=== PATIENT | male | born 1955 ===

== ENCOUNTER 2018-04-22 20:47 | Emergency (ER) | payer SELFPAY ==
[2018-04-22 20:55] VITALS: O2SAT 98
--- NOTE | 2018-04-22 21:32 | C.PDOC ---
History Of Present Illness 62 y/o male pt presents to the ER c/o epigastric abdominal pain with vomiting for x3 hours. Pt reports he ate oxtail soup with and felt nauseated and started vomiting 1-2 after eating. feels fine and does not have the same sx. states the soup had a lot of grease in it. Pt did took Pepto Bismol and chamomile tea without relief of his symptoms. Pt denies recent antibiotics, fever, chills, cough, diarrhea and chest pain. Time Seen by Provider: 04/22/18 21:04 Chief Complaint (Nursing): Abdominal Pain History Per: Patient History/Exam Limitations: no limitations Onset/Duration Of Symptoms: Hrs (3) Current Symptoms Are (Timing): Still Present Location Of Pain/Discomfort: Epigastric, Suprapubic Past Medical History Reviewed: Historical Data, Nursing Documentation, Vital Signs Vital Signs: Last Vital Signs Temp 98.1 F 04/22/18 20:53 Pulse 60 04/22/18 20:53 Resp 16 04/22/18 20:53 BP 116/71 04/22/18 20:53 Pulse Ox 98 04/22/18 20:53 Family History: States: Unknown Family Hx - Social History Hx Alcohol Use: No Hx Substance Use: No - Immunization History Hx Tetanus Toxoid Vaccination: No Hx Influenza Vaccination: No Hx Pneumococcal Vaccination: No Review Of Systems Except As Marked, All Systems Reviewed And Found Negative. Cardiovascular: Negative for: Chest Pain Gastrointestinal: Positive for: Nausea, Vomiting, Abdominal Pain (epigastric and suprapubic ). Negative for: Diarrhea Physical Exam - Physical Exam Appears: Well, Non-toxic, No Acute Distress Head: Atraumatic, Normacephalic Eye(s): bilateral: PERRL, EOMI, Other (conjunctiva clear) Ear(s): Bilateral: Other (TM's clear) Oral Mucosa: Moist Throat: No Erythema, No Exudate, Other (uvula midline) Chest: Symmetrical Cardiovascular: Rhythm Regular, No Murmur Respiratory: No Rales, No Rhonchi, No Wheezing, Other (lungs CTA b/l, good air movement ) Gastrointestinal/Abdominal: Bowel Sounds (normal ), Soft, Tenderness (mild; epigastric and suprapubic ), No Distention, No Guarding, No Rebound Extremity: Bilateral: Atraumatic, Normal Color And Temperature Pulses: Left Dorsalis Pedis: Normal (2+), Right Dorsalis Pedis: Normal (2+) Neurological/Psych: Oriented x3, Normal Motor (5/5), Normal Sensation, Other ( GCS 15, CN 2-12 intact) Gait: Steady ED Course And Treatment - Laboratory Results Result Diagrams: 04/22/18 21:44 04/22/18 21:44 ECG: Interpreted By Me, Viewed By Me ECG Rhythm: Sinus Bradycardia ECG Interpretation: Normal Interpretation Of ECG: Normal interval, normal axis, no ST elevations Rate From EC (BPM) O2 Sat by Pulse Oximetry: 98 (RA) Pulse Ox Interpretation: Normal Medical Decision Making Medical Decision Making: Patient presents as above, plan is ivf, pepcid, zofran, ekg, labs and reassess. 23:10 Patient reassessed, states he feels better. Results of w/u d/w pt/. Pt states he is ready to go home. Patient advised to adhere to a bland diet, to f/u w/his pcp in 2 days and to RTED for new, worsening or concerning symptoms. He verbalized understanding and was given an opportunity to ask question and he had none. Disposition Counseled Patient/Family Regarding: Studies Performed, Diagnosis, Need For Followup - Disposition Referrals: Lex Woods [Staff Provider] - Disposition: HOME/ ROUTINE Disposition Time: 23:48 Condition: IMPROVED Prescriptions: Famotidine [Pepcid] 20 mg PO BID #20 tab Instructions: Acute Abdomen (Belly Pain), Adult (DC), Nausea and Vomiting, Adult (DC), [place] Diet Forms: [facility] ([place]ian), Gen Discharge Inst [place]ian Print Language: TELUGU - POA Present On Arrival: None - Clinical Impression Clinical Impression: Abdominal pain, Nausea, Vomiting - Scribe Statement The provider has reviewed the documentation as recorded by the Hillary Jaramillo Do Provider Attestation: All medical record entries made by the Scribe were at my direction and personally dictated by me. I have reviewed the chart and agree that the record accurately reflects my personal performance of the history, physical exam, medical decision making, and the department course for this patient. I have also personally directed, reviewed, and agree with the discharge instructions and disposition.
[2018-04-22] MEDS ORDERED: Sodium Chloride 0.9% 1,000 ML IV ONE (21:36)
[2018-04-22 22:02] LABS: BASO % 0.3 % (0.0-2.0); EOS % 0.1 % (0.0-4.0); HEMOGLOBIN 14.5 g/dL (12.0-18.0); LYMPH # 0.7 K/uL (1.0-4.3); MEAN CELL VOLUME 92.6 fL (80.0-94.0); MEAN CORPUSCULAR HEMOGLOBIN 31.8 pg (27.0-31.0); MEAN CORPUSCULAR HGB CONC 34.3 g/dL (33.0-37.0); MEAN PLATELET VOLUME 7.7 fL (7.2-11.7); MONO # 0.2 K/uL (0.0-0.8); MONO % 2.1 % (0.0-10.0); NEUT % 90.5 % (50.0-75.0); PLATELET COUNT 205 K/uL (130-400); RBC 4.55 Mil/uL (4.40-5.90); RED CELL DISTRIBUTION WIDTH 13.2 % (11.5-14.5)
[2018-04-22 22:03] LABS: ALB/GLOB RATIO 1.3 (1.0-2.1); ALBUMIN 4.5 g/dL (3.5-5.0); ALT/SGPT 50 U/L (21-72); AST/SGOT 31 U/L (17-59); BLOOD UREA NITROGEN 17 mg/dL (9-20); CALCIUM 8.5 mg/dl (8.6-10.4); GFR NON-AFRICAN AMERICAN > 60; LIPASE 111 U/L (23-300)
[2018-04-22 22:05] LABS: URINE BILIRUBIN NEGATIVE (NEGATIVE); URINE BLOOD 2+ (NEGATIVE); URINE CLARITY Clear (Clear); URINE COLOR Yellow (YELLOW); URINE GLUCOSE (UA) NORMAL (Normal); URINE LEUKOCYTE ESTERASE NEG Leu/uL (Negative); URINE PROTEIN NEGATIVE (NEGATIVE); URINE UROBILINOGEN NORMAL mg/dL (0.2-1.0)
[2018-04-22 22:27] LABS: BANDS 2 % (0-2); LYMPHOCYTE 8 % (20-40); MONOCYTE 1 % (0-10); NEUTROPHIL 89 % (50-75); PLATELET ESTIMATE NORMAL (NORMAL); TOTAL CELLS COUNTED 100
[2018-04-22 23:56] VITALS: BP 126/73; PULSE 78; RESP 18; TEMP 98
--- NOTE | 2018-04-23 08:44 | RAD ---
Date of service: 04/22/2018 PROCEDURE: Radiographs of the chest and abdomen (obstructive series) HISTORY: abd pain COMPARISON: No prior. TECHNIQUE: AP radiograph of the chest, with upright and supine radiographs of the abdomen. FINDINGS: CHEST: Lungs: Clear. Cardiovascular: Normal size heart. No pulmonary vascular congestion. No aortic atherosclerotic calcification present Pleura: No pleural fluid. No pneumothorax. Other findings: None. ABDOMEN AND PELVIS: Bowel: There is moderate amount of stool in the colon. No evidence of mechanical obstruction. Free air: None. Bones: Unremarkable. Other findings: None. IMPRESSION: Moderate stool burden in the colon. Nonspecific bowel gas pattern. Clear lungs.
--- NOTE | 2018-04-24 15:01 | CARD ---
APPROVED REPORT Date of service: 04/22/2018 EKG Measurement Heart [id number] NM [id number] <Conclusion> Sinus bradycardia Otherwise normal ECG
== END 2018-04-22 23:57 | disposition home or self-care (01) ==
LOC: C.ER 20:47
DX: R10.13 Epigastric pain (principal); R11.2 Nausea with vomiting, unspecified
CPT/HCPCS: 74022; 80053; 81001; 83690; 85025; 93005; 96374; 96375; 99284; J2405; J7030